=== PATIENT | male | born 1930 | race Caucasian/White ===

== ENCOUNTER → 2017-03-23 | Outpatient (CLI) | payer MEDICARE, OTHER ==
--- NOTE | ~2017-03-23 | ENPV ---
Vascular Lower Extremities DVT Study Procedure Demographics Patient Name WILDER MATHIS Date of Study 03/23/2017 Patient Number [id number] Gender Male Date of 1930 Age 87 Visit Number [id number] Height Accession Number [id number] Weight Room Number BSA BMI Referring [facility] Aftab Thomas Suarez MD Physician MD Physician Fuentes Martin MD Physician Ordering Physician Fuentes Martin Ad Writer [employer] Alvarado Pierce, [facility] Conclusions Summary No evidence of deep vein thrombosis in the right lower extremity. Procedure Type of Study: Veins:Lower Extremities DVT Study, Lower Extremity Right. Indications for Study:Unilateral pain and edema. Additional Indications:Right lower extremity edema Appropriate Use Criteria:9 Patient Status:Routine. Study Location:Vascular Lab. Technical Quality:Adequate visualization. - Preliminary reported to:Joycelyn Dill @1700. Velocities are measured in cm/s ; Diameters are measured in cm Right Lower Extremities DVT Study Measurements Right 2D and Doppler Measurements + + + + +------+------+ + !Location !Visualized!Compressibility!Thrombosis!Signal!Reflux!Reflux ! ! ! ! ! ! ! !(sec) ! + + + + +------+------+ + !GSV Thigh !Yes !Yes !None !Phasic!No ! ! + + + + +------+------+ + !Common !Yes !Yes !None !Phasic!No ! ! !Femoral ! ! ! ! ! ! ! + + + + +------+------+ + !Prox !Yes !Yes !None !Phasic!No ! ! !Femoral ! ! ! ! ! ! ! + + + + +------+------+ + !Mid Femoral!Yes !Yes !None !Phasic!No ! ! + + + + +------+------+ + !Dist !Yes !Yes !None !Phasic!No ! ! !Femoral ! ! ! ! ! ! ! + + + + +------+------+ + !Popliteal !Yes !Yes !None !Phasic!No ! ! + + + + +------+------+ + !Gastroc !Yes !Yes !None ! ! ! ! + + + + +------+------+ + !PTV !Yes !Yes !None ! ! ! ! + + + + +------+------+ + !Peroneal !Yes !Yes !None ! ! ! ! + + + + +------+------+ + Left Lower Extremities DVT Study Measurements Left 2D and Doppler Measurements + + + + +------+------+ + !Location !Visualized!Compressibility!Thrombosis!Signal!Reflux!Reflux ! ! ! ! ! ! ! !(sec) ! + + + + +------+------+ + !Common !Yes !Yes !None !Phasic!No ! ! !Femoral ! ! ! ! ! ! ! + + + + +------+------+ + Signature dtt: [id number] dtmary: 03/23/17 1649 Physician Self Edit
== END | disposition disaster alternative care site (69) ==
LOC: GCAR 16:00
DX: M79.89 Other specified soft tissue disorders (principal)